=== PATIENT | female | born 1995 | race Caucasian/White ===

== ENCOUNTER → 2017-12-22 | Outpatient (CLI) | payer OTHER | LOC: FIMAGING 12:50 | PROVIDERS: ATTEND Obstetrics & Gynecology | DX: O34.42 Maternal care for other abnormalities of cervix, second trimester (principal); O99.212 Obesity complicating pregnancy, second trimester; Z68.32 Body mass index [BMI] 32.0-32.9, adult; Z3A.22 22 weeks gestation of pregnancy ==